=== PATIENT | female | born 1975 | race African-American/Black ===

== ENCOUNTER 2023-12-25 07:20 | Emergency (ER) | payer OTHER, MEDICAID ==
[~2023-12-25] VITALS: Ht 172.7 cm; Wt 100.0 kg
[2023-12-25 07:22] VITALS: O2SAT 99
[2023-12-25] MEDS: MORPHINE SULFATE 4 MG/ML INJ (FOR IV/IM USE) IV STA (07:24)
[2023-12-25] MEDS: ONDANSETRON 4MG ODT PO STA (08:57)
[2023-12-25] MEDS: MORPHINE SULFATE 4 MG/ML INJ (FOR IV/IM USE) IV ONE (08:57)
[2023-12-25 08:58] LABS: BASOPHILS % 0.4 % (0.0-2.0); DIFFERENTIAL COMMENT 0; EOSINOPHILS % 1.8 % (0.0-5.0); HEMATOCRIT. 38.8 % (36.0-48.0); HEMOGLOBIN. 11.6 g/dL (12.0-16.0); LYMPHOCYTES % 14.4 % (20.0-50.0); MEAN CORPUSCULAR HEMOGLOBIN 26.1 pg (28.0-32.0); MEAN CORPUSCULAR HGB CONC 29.9 g/dL (31.0-37.0); MEAN CORPUSCULAR VOLUME 87.3 fL (81.0-99.0); MEAN PLATELET VOLUME 8.9 fl (7.4-10.4); NEUTROPHILS % 75.4 % (40.0-76.0); PLATELET 158 x1000/uL (130-400); RED BLOOD CELL COUNT 4.44 mill/uL (4.2-5.4); RED CELL DISTRIBUTION WIDTH 15.7 % (11.6-14.6); WHITE BLOOD COUNT 11.8 x1000/uL (4.5-11.0)
[2023-12-25 09:01] LABS: CARBON DIOXIDE 26 mEq/L (21-32); CHLORIDE 102 mEq/L (98-107); POTASSIUM 3.2 mEq/L (3.5-5.1); SODIUM 137 mEq/L (136-145)
[2023-12-25 09:02] LABS: CALCIUM 9.3 mg/dL (8.7-10.4)
[2023-12-25 09:07] LABS: CREATININE 0.8 mg/dL (0.6-1.0); GLUCOSE 181 mg/dL (70-105)
[2023-12-25 09:08] LABS: ALANINE AMINOTRANSFERASE 13 IU/L (10-49)
[2023-12-25 09:09] LABS: ALBUMIN 4.3 g/dL (3.2-4.8); ASPARTATE AMINOTRANSFERASE 25 IU/L (<34); BILIRUBIN TOTAL 0.2 mg/dL (0.1-1.0); PROTEIN TOTAL 6.8 g/dL (6.0-8.3)
[2023-12-25 09:18] LABS: INR 0.9; PROTHROMBIN TIME 9.9 sec (9.6-11.0)
[2023-12-25 09:20] LABS: CLARITY URINE CLEAR (CLEAR); COLOR URINE YELLOW (YELLOW); GLUCOSE URINE NEGATIVE (NEGATIVE); HCG SCREEN NEGATIVE; KETONES URINE NEGATIVE (NEGATIVE); LEUKOCYTE ESTERASE URINE NEGATIVE (NEGATIVE); NITRITE URINE NEGATIVE (NEGATIVE); OCCULT BLOOD URINE NEGATIVE (NEGATIVE); PH URINE 8.5 (4.5-8.0); PROTEIN URINE NEGATIVE (NEGATIVE); SPECIFIC GRAVITY URINE 1.007 (1.005-1.030); UROBILINOGEN URINE 0.2 E.U./dL (0.2-1.0)
[2023-12-25 11:58] LABS: BILIRUBIN DIRECT < 0.1 mg/dL (<=3.0); UREA NITROGEN BLOOD < 5 mg/dL (9-23)
[2023-12-25] MEDS ORDERED: LORAZEPAM 0.5MG TABLET PO PRN (13:00)
[2023-12-25] MEDS ORDERED: MAGNESIUM/ALUMINUM HYDROXIDE/SIMETHICONE 30ML UDC PO PRN (13:00)
[2023-12-25] MEDS ORDERED: DOCUSATE SODIUM 100MG CAPSULE PO PRN (13:00)
[2023-12-25] MEDS ORDERED: IPRATROPIUM/ALBUTEROL 0.5-3(2.5)MG/3ML NEB HHN PRN (13:00)
[2023-12-25] MEDS ORDERED: GUAIFENESIN 200MG/10ML SUGAR FREE UDC PO PRN (13:00)
[2023-12-25] MEDS ORDERED: CLONIDINE 0.1MG TABLET PO PRN (13:00)
[2023-12-25] MEDS ORDERED: ACETAMINOPHEN 325MG TABLET PO PRN ×2 (13:00)
[2023-12-25] MEDS ORDERED: KETOROLAC 15MG/ML VIAL IV PRN (13:15)
[2023-12-25] MEDS ORDERED: DEXTROSE 50% WATER 50ML SYRINGE IV PRN ×2 (13:15)
[2023-12-25] MEDS ORDERED: PANTOPRAZOLE SODIUM 40 MG/VIAL IV SCH (13:15)
[2023-12-25] MEDS ORDERED: INSULIN LISPRO 100 UNITS/ML SUBCUT SCH (13:20)
[2023-12-25] MEDS ORDERED: NALOXONE HCL 0.4MG/ML VIAL IV PRN (13:30)
[2023-12-25] MEDS ORDERED: DULOXETINE HCL 30MG DR CAPSULE PO SCH (13:30)
[2023-12-25] MEDS ORDERED: LITHIUM CARBONATE 150 MG CAPSULE PO SCH ×2 (13:30→21:00)
[2023-12-25] MEDS ORDERED: LORAZEPAM 2MG/ML INJ IV PRN (13:30)
[2023-12-25 13:50] VITALS: BP 137/84; PULSE 71; RESP 19; TEMP 36.72516; O2SAT 96
[2023-12-25] MEDS: MORPHINE SULFATE 2 MG/ML INJ (NOT FOR IM USE) IV PRN (14:15)
[2023-12-25] MEDS ORDERED: THIAMINE HCL 200 MG in SODIUM CHLORIDE 0.9% 98 ML IV SCH (14:30)
[2023-12-25] MEDS ORDERED: BLOOD SUGAR DIAGNOSTIC STRIP TEST SCH (17:00)
== END 2023-12-25 14:38 | disposition short-term general hospital (02) ==
LOC: ER 07:20 → CANBEDREQ 11:53 → ER 14:38
DX: R10.84 Generalized abdominal pain (principal); E11.9 Type 2 diabetes mellitus without complications; F31.9 Bipolar disorder, unspecified; E66.811 Obesity, class 1; E66.01 Morbid (severe) obesity due to excess calories; I10 Essential (primary) hypertension; Z79.899 Other long term (current) drug therapy; Z98.84 Bariatric surgery status; Z90.49 Acquired absence of other specified parts of digestive tract
CPT/HCPCS: 99285; 74176; 96374; 80076; 80048; 81003; 84703; 83690; 85025; 85610; 36415; 93005; 96376; Q0162; J2270 ×2; J3411; J7050